=== PATIENT | female | born 1980 | race Caucasian/White ===

== ENCOUNTER 2018-10-30 01:28 | Emergency (ER) | payer BC ==
[~2018-10-30] VITALS: Ht 167.6 cm; Wt 109.1 kg
[2018-10-30 01:35] VITALS: BP 139/86; TEMP 98.6
[2018-10-30] MEDS ORDERED: LEXAPRO20 MG PO (02:54)
[2018-10-30 05:03] VITALS: PULSE 106
== END 2018-10-30 05:10 | disposition home or self-care (01) ==
LOC: COL.ER 01:28
DX: N75.1 Abscess of Bartholin's gland (principal); F41.9 Anxiety disorder, unspecified; Z90.49 Acquired absence of other specified parts of digestive tract
CPT/HCPCS: J3010